=== PATIENT | female | born 1990 ===

== ENCOUNTER 2023-08-09 21:23 | Emergency (ER) | payer MEDICAID, OTHER ==
[~2023-08-09] VITALS: Ht 162.6 cm; Wt 86.0 kg
[2023-08-09 22:27] LABS: COVID19 ANTIGEN SOFIA FIA NEGATIVE (NEGATIVE); Rapid Influenza A Negative (Negative); Rapid Influenza B Negative (Negative)
[2023-08-10] MEDS ORDERED: CLIN300C70 PO (02:30)
[2023-08-10] MEDS ORDERED: ACET500T58 PO (02:30)
[2023-08-10] MEDS ORDERED: PRED20TA2 PO (02:30)
[2023-08-10] MEDS ORDERED: SODIUM CHLORIDE 0.9% 1,000 ML IV ONE (02:30)
[2023-08-10] MEDS ORDERED: DexAMETHasone SOD PHOS 10MG/1ML VIAL INJ IM ONE (02:30)
[2023-08-10] MEDS ORDERED: cefTRIAXone 1GM/50ML D5W 50 ML IV ONE ×2 (02:30)
[2023-08-10 02:36] VITALS: BP 117/61; TEMP 98.6
[2023-08-10] MEDS ORDERED: KETOROLAC TROMETH 30 MG/ML 1ML VIAL IV ONE (03:00)
[2023-08-10 04:37] VITALS: PULSE 94; RESP 18; O2SAT 95
== END 2023-08-10 04:50 | disposition home or self-care (01) ==
LOC: ER 21:23
DX: J03.90 Acute tonsillitis, unspecified (principal); J45.909 Unspecified asthma, uncomplicated; Z79.1 Long term (current) use of non-steroidal anti-inflammatories (NSAID); Z79.899 Other long term (current) drug therapy; Z20.822 Contact with and (suspected) exposure to COVID-19
CPT/HCPCS: 36415; 87426; 87804; 96365; 96372; 96375; 99284; J0696; J1100; J1885